=== PATIENT | male | born 1950 | race Caucasian/White ===

== ENCOUNTER → 2021-02-13 | Day surgery (SDC) | payer OTHER ==
[~2021-02-13] VITALS: Ht 165.1 cm; Wt 90.7 kg
[~2021-02-13] MED LIST: ASPIRIN EC81 MG PO; CLARITIN10 M2 PO; EPINEPHRIN0.3 MG/0.3 IM; FLONASE ALLER15.8 ML; LIPITOR80 MG PO; LOPRESSOR25 MG PO; LOVAZA1 GM PO; NAPROXEN500 MG PO; NITROQUIK SL0.4 MG SL; PLAVIX75 MG PO; PROTONIX 40MG T40 MG PO; TRAZODONE 50MG50 MG PO; ZESTRIL5 MG PO
== END | disposition home or self-care (01) ==
LOC: FAS 08:49
DX: D12.5 Benign neoplasm of sigmoid colon (principal); K29.51 Unspecified chronic gastritis with bleeding; K29.81 Duodenitis with bleeding; Z86.010 Personal history of colon polyps; I10 Essential (primary) hypertension; I25.10 Atherosclerotic heart disease of native coronary artery without angina pectoris; K59.00 Constipation, unspecified; J44.9 Chronic obstructive pulmonary disease, unspecified; R10.13 Epigastric pain; Z87.891 Personal history of nicotine dependence; K21.9 Gastro-esophageal reflux disease without esophagitis; E78.00 Pure hypercholesterolemia, unspecified; I25.2 Old myocardial infarction; E55.9 Vitamin D deficiency, unspecified; Z88.5 Allergy status to narcotic agent; K57.31 Diverticulosis of large intestine without perforation or abscess with bleeding; K64.4 Residual hemorrhoidal skin tags; K64.8 Other hemorrhoids
CPT/HCPCS: J2250; J7120

== ENCOUNTER 2021-12-18 11:37 | Emergency (ER) | payer OTHER ==
[~2021-12-18 11:37] MED LIST changes: +INHALER INH; +NITROGLYCERIN0.3 MG SL; +ZOCOR40 MG PO
[2021-12-18] MEDS ORDERED: ULTRAM50 MG PO (13:48)
[2021-12-18] MEDS ORDERED: FLEXERIL5 MG PO (13:48)
[2021-12-18] MEDS ORDERED: PREDNISONE20 MG PO (13:48)
[2021-12-18 14:45] LABS: BILIRUBIN NEGATIVE (NEGATIVE); BLOOD NEGATIVE Ery/uL (NEGATIVE); CLARITY CLEAR (CLEAR); COLOR YELLOW (YELLOW); GLUCOSE (U) NORMAL (NORMAL); LEUKOCYTES NEGATIVE Leu/uL (NEGATIVE); NITRITE NEGATIVE (NEGATIVE); PROTEIN NEGATIVE (NEGATIVE); SPECIFIC GRAVITY <=1.005 (1.001-1.030); UROBILINOGEN 0.2 mg/dL (0.2-1.0)
== END 2021-12-18 14:23 | disposition home or self-care (01) ==
LOC: FER 11:37
PROVIDERS: Nurse Practitioner Family
DX: M51.36 Other intervertebral disc degeneration, lumbar region (principal); I10 Essential (primary) hypertension; E78.5 Hyperlipidemia, unspecified; Z88.5 Allergy status to narcotic agent; Z88.8 Allergy status to other drugs, medicaments and biological substances; Z79.899 Other long term (current) drug therapy; Z79.82 Long term (current) use of aspirin; Z87.891 Personal history of nicotine dependence
CPT/HCPCS: 72100; 81003; 96372; J1100; J1885